=== PATIENT | female | born 1985 | race Caucasian/White ===

== ENCOUNTER 2018-05-14 22:17 | Emergency (ER) | payer SELFPAY ==
[2018-05-15 00:58] LABS: ABSOLUTE EOSINOPHILS # (AUTO) 0.2 10^3/uL (0.0-0.6); ABSOLUTE LYMPHOCYTES (AUTO) 1.7 10^3/uL (0.5-4.7); ABSOLUTE MONOCYTES (AUTO) 0.7 10^3/uL (0.1-1.4); ABSOLUTE NEUT (AUTO) 11.9 10^3/uL (1.7-8.2); BASOPHILS % (AUTO) 0.3 % (0-2); EOSINOPHILS % (AUTO) 1.5 % (0-6); HEMATOCRIT 39.2 % (36.0-47.0); HEMOGLOBIN 13.4 g/dL (12.0-15.5); LYMPHOCYTES % (AUTO) 11.4 % (13-45); MEAN CORPUSCULAR HEMOGLOBIN 31.2 pg (27.0-33.4); MEAN CORPUSCULAR HGB CONC 34.1 g/dL (32.0-36.0); MEAN CORPUSCULAR VOLUME 92 fl (80-97); PLATELET COUNT 202 10^3/uL (150-450); RED BLOOD COUNT 4.28 10^6/uL (3.72-5.28); RED CELL DISTRIBUTION WIDTH 12.9 % (11.5-14.0); SEGMENTED NEUTROPHILS % (AUTO) 81.8 % (42-78); TOTAL CELLS COUNTED % (AUTO) 100 %; WHITE BLOOD COUNT 14.6 10^3/uL (4.0-10.5)
[2018-05-15 01:13] LABS: APPEARANCE,URINE CLOUDY; BILIRUBIN,URINE NEGATIVE (NEGATIVE); COLOR,URINE RED; GLUCOSE, URINE NEGATIVE (NEGATIVE); KETONES,URINE TRACE mg/dL (NEGATIVE); LEUKOCYTE ESTERASE,URINE TRACE (NEGATIVE); NITRITE,URINE NEGATIVE (NEGATIVE); PROTEIN,URINE 100 mg/dL (NEGATIVE); UROBILINOGEN,URINE NEGATIVE mg/dL (<2.0)
[2018-05-15] MEDS ORDERED: NORMAL SALINE 1000 ML 1,000 ML IV ONE (03:18)
[2018-05-15] MEDS ORDERED: ONDANSETRON HCL INJ/PF 4 MG/2 ML SDV IV ONE (03:19)
--- NOTE | 2018-05-15 04:22 | RADIOLOGY REPORT (SQ) ---
EXAM DESCRIPTION: US TRANSVAGINAL COMPLETED DATE/TME: 05/15/2018 03:19 CLINICAL HISTORY: 32 years, Female, preg, bleeding COMPARISON: None. TECHNIQUE: Transverse and longitudinal transvaginal sonographic images of the pelvis in a first trimester patient LIMITATIONS: None. FINDINGS: The uterus measures 12.4 x 5.1 x 8.8 cm. There is suggestion of a bicornuate or septate type uterus with 2 separate endometrial canals. On the right, endometrium measures 11 mm, on the left 8 mm. No visible intrauterine gestational sac. Correlate with beta hCG levels. The maternal right ovary is not well seen likely due to its position in the pelvis. The left ovary measures 3.2 x 1.9 x 3.0 cm. Normal flow to the left ovary. No adnexal cyst or mass. No free fluid. IMPRESSION: Bicornuate or septate type uterus is suggested. Negative for intrauterine gestational sac at this time. Correlate with beta hCG levels. Follow-up ultrasound may also be of benefit copyright 2011 [employer]- All Rights Reserved
--- NOTE | 2018-05-15 05:15 | ER Document Report ---
ED General - General Chief Complaint: Vaginal Bleeding Stated Complaint: VAGINAL BLEEDING Time Seen by Provider: 05/15/18 03:17 Notes: Patient is a female presents to the emergency department for vaginal bleeding. Patient states she presented to [facility] emergency room X days ago for vaginal bleeding. At that time was told she was having a complete miscarriage. Patient states she believes she was 8 weeks at that time. Patient states she has had a scant amount of vaginal bleeding since then going through about 3 pads per day. Patient states tonight she started passing large clots the size of golf balls which concerned her and she had generalized lower abdominal pain which is why she re-presents to emergency room. Patient states she knows that she has a bicornuate uterus. States when she initially took an at-home test and found out that she was she presented to the emergency room for generalized left abdominal pain. Patient states that that time in [facility] she was told that the was in her uterus and they were able to hear a heartbeat. Patient states when she was at [facility] 6 days ago she is unsure of what her beta hCG levels were. She was told to follow-up with [facility]. States she lost her insurance this week so has not followed up with anybody. States she was given no medications upon discharge from [facility]. Past medical history: Kidney stones Medications: None Allergies: None Patient's last menstrual period was 03/06/2018. TRAVEL OUTSIDE OF THE [place] IN LAST 30 DAYS: No - Related Data Allergies/Adverse Reactions: No Known Allergies Allergy (Unverified 05/14/18 22:27) Past Medical History - General Information source: Patient - Social History Smoking Status: Never Smoker Family History: Reviewed & Not Pertinent Patient has suicidal ideation: No Patient has homicidal ideation: No Renal/ Medical History: Reports: Hx Kidney Stones. Denies: Hx Peritoneal Dialysis Review of Systems - Review of Systems Constitutional: No symptoms reported EENT: No symptoms reported Cardiovascular: No symptoms reported Respiratory: No symptoms reported Gastrointestinal: See HPI Genitourinary: See HPI Female Genitourinary: See HPI Musculoskeletal: No symptoms reported Skin: No symptoms reported Hematologic/Lymphatic: See HPI Neurological/Psychological: No symptoms reported Physical Exam - Vital signs Vitals: Temp Pulse Resp BP Pulse Ox 98.5 F 66 20 126/66 H 100 05/14/18 22:54 05/14/18 22:54 05/14/18 22:54 05/14/18 22:54 05/14/18 22:54 - Notes Notes: GENERAL: Alert, interacts well. No acute distress. HEAD: Normocephalic, atraumatic. EYES: Pupils equal, round, and reactive to light. Extraocular movements intact. ENT: Oral mucosa moist, tongue midline. NECK: Full range of motion. Supple. Trachea midline. LUNGS: Clear to auscultation bilaterally, no wheezes, rales, or rhonchi. No respiratory distress. HEART: Regular rate and rhythm. No murmur ABDOMEN: Soft, non-tender. Non-distended. Bowel sounds present in all 4 quadrants. Very minimal suprapubic tenderness, minimal left pelvic pain. No right pelvic pain noted. EXTREMITIES: Moves all 4 extremities spontaneously. No edema, normal radial and dorsalis pedis pulses bilaterally. No cyanosis. BACK: no cervical, thoracic, lumbar midline tenderness. No saddle anesthesia, normal distal neurovascular exam. No CVA tenderness noted bilaterally NEUROLOGICAL: Alert and oriented x3. Normal speech. cranial nerves II through XII grossly intact PSYCH: Normal affect, normal mood. SKIN: Warm, dry, normal turgor. No rashes or lesions noted. Course - Re-evaluation Re-evalutation: 05/15/18 05:15 Patient's ultrasound states that the right ovary is not well-seen likely due to its position in the pelvis. Patient is denying any right pelvic pain. Patient states most of her pain is suprapubic and left pelvic in nature. Ultrasound does show that the left ovary has normal blood flow no torsion noted. Patient's uterus has no intrauterine gestational sac noted correlate with beta [place] levels. [place] [id number]. At this time I do not have a beta hCG to compare to. Due to patient's relatively benign exam, non-tachycardia, non-hypotensive and, no change in her labs to reveal anemia, ultrasound stating no pelvic free fluid I am not expecting an ectopic at this time. Patient does states when she initially presented to [facility] emergency room when she found out she was she was told that the baby was in her uterus and they did hear her heartbeat. This also makes me feel as though an ectopic is unlikely. Discussed case with [facility] Dr. John Moyer who states he feels the patient is stable for discharge and follow-up at his facility tomorrow morning. He is not recommending any medical treatment at this time. Discussed with patient extensively at bedside need to follow-up with women's health, or return to the emergency room for repeat beta hCG testing. Patient voices understanding and is stable for discharge. Patient is non-tachycardic, non-hypotensive. - Vital Signs Vital signs: Temp Pulse Resp BP Pulse Ox 98.5 F 66 20 126/66 H 100 05/14/18 22:54 05/14/18 22:54 05/14/18 22:54 05/14/18 22:54 05/14/18 22:54 - Laboratory Result Diagrams: 05/15/18 00:07 Laboratory results interpreted by me: 05/15/18 05/15/18 05/15/18 00:07 00:07 00:07 WBC 14.6 H Seg Neutrophils % 81.8 H Lymphocytes % 11.4 L Absolute Neutrophils 11.9 H Serum HCG, Qual POSITIVE H Beta HCG, Quant Urine Protein 100 H Urine Ketones TRACE H Urine Blood LARGE H Ur Leukocyte Esterase TRACE H 05/15/18 00:07 WBC Seg Neutrophils % Lymphocytes % Absolute Neutrophils Serum HCG, Qual Beta HCG, Quant 76141.00 H Urine Protein Urine Ketones Urine Blood Ur Leukocyte Esterase Discharge - Discharge Clinical Impression: Vaginal bleeding, Miscarriage Qualifiers: Weeks of gestation: less than 8 weeks Qualified Code(s): Z3A.01 - Less than 8 weeks gestation of Condition: Stable Disposition: HOME, SELF-CARE Instructions: Miscarriage Impending ([facility]), Vaginal Bleeding ([facility]) Additional Instructions: As we discussed you must follow-up with women's health, at [facility] Moyer's office, or return to an emergency room for repeat beta hCG testing within 48 hours. Please also return should you feel lightheaded, dizzy, weak or have increasing vaginal bleeding. Referrals: JOHN MOYER MD [ACTIVE STAFF] - Follow up as needed
[2018-05-15 06:09] VITALS: BP 114/61
== END 2018-05-15 06:09 | disposition home or self-care (01) ==
LOC: ER 22:17
DX: O46.91 Antepartum hemorrhage, unspecified, first trimester (principal); O03.9 Complete or unspecified spontaneous abortion without complication; O26.891 Other specified pregnancy related conditions, first trimester; R10.30 Lower abdominal pain, unspecified; Z3A.01 Less than 8 weeks gestation of pregnancy
CPT/HCPCS: 99284; 96361; 96374; 36415; 84702; 84703; 85025; 81001; 76817; 93976; J2405; J7030